=== PATIENT | male | born 1935 | race Caucasian/White ===

== ENCOUNTER 2018-08-22 21:38 | Emergency (ER) | payer MEDICARE ==
[~2018-08-22] VITALS: Ht 180.3 cm; Wt 78.0 kg
[~2018-08-22 21:38] MED LIST: DOCU-28 PO
[2018-08-22] MEDS ORDERED: ipratropium/albuterol 3ml nebule ONE (22:04)
[2018-08-22] MEDS ORDERED: ipratropium/albuterol 3ml nebule NEB ONE (22:05)
[2018-08-22] MEDS ORDERED: LORazepam 0.5 MG tablet PO ONE (22:05)
[2018-08-22] MEDS ORDERED: ondansetron 4mg rapidly disintigrating tab PO ONE (22:05)
[2018-08-22 22:20] LABS: BASOPHILS % (AUTO) 0.9 % (0-1); EOSINOPHILS # (AUTO) 0.1 X10'3 (0-0.9); EOSINOPHILS % (AUTO) 4.2 % (0-6); HEMATOCRIT 36.4 % (42.0-52.0); HEMOGLOBIN 12.3 g/dl (14.0-17.9); LYMPHOCYTES # (AUTO) 1.4 X10'3 (1.1-4.8); LYMPHOCYTES % (AUTO) 40.5 % (21-51); MEAN CORPUSCULAR HEMOGLOBIN 31.9 PG (27.0-31.0); MEAN CORPUSCULAR HGB CONC 33.9 % (33.0-36.5); MEAN CORPUSCULAR VOLUME 94.2 FL (78-98); MEAN PLATELET VOLUME 7.1 FL (7.4-10.4); MONOCYTES # (AUTO) 0.4 X10'3 (0-0.9); NEUTROPHILS # (AUTO) 1.5 X10'3 (1.8-7.7); NEUTROPHILS % (AUTO) 42.4 % (42-75); PLATELET COUNT 182 X10'3 (140-440); RED BLOOD COUNT 3.87 X10'6 (4.70-6.10); RED CELL DISTRIBUTION WIDTH 14.2 % (11.5-14.5); WHITE BLOOD COUNT 3.5 X10'3 (4.5-11.0)
[2018-08-22 22:44] LABS: D-DIMER 0.44 MG/L FEU (0-0.50); GLUCOSE 109 MG/DL (70-104); PARTIAL THROMBOPLASTIN TIME 28 SECONDS (22-32); SODIUM 137 MMOL/L (135-145)
[2018-08-22 22:45] LABS: ALANINE AMINOTRANSFERASE 24 U/L (12-78); ALBUMIN 3.7 G/DL (3.4-5.0); ALBUMIN/GLOBULIN RATIO 1.1 (1.1-1.5); ALKALINE PHOSPHATASE 105 IU/L (46-116); ANION GAP 13 (8-16); ASPARTATE AMINO TRANSFERASE 22 U/L (10-37); BILIRUBIN,TOTAL 0.3 MG/DL (0.1-1.0); BLOOD UREA NITROGEN 12 MG/DL (7-18); BUN/CREATININE RATIO 13.6 (5.4-32.0); CALCIUM 8.7 MG/DL (8.5-10.1); CHLORIDE 101 MMOL/L (99-107); CREATININE 0.88 MG/DL (0.60-1.10); POTASSIUM 3.7 MMOL/L (3.5-5.1); TOTAL CARBON DIOXIDE 22.9 MMOL/L (24-32); TOTAL PROTEIN 7.1 G/DL (6.4-8.2); eGFR 83 ML/MIN
[2018-08-22] MEDS ORDERED: oxymetazoline 15 ML nasal spray NS ONE (23:10)
[2018-08-22] MEDS ORDERED: AZIT-63 PO (23:31)
[2018-08-22] MEDS ORDERED: AFRIN NS (23:31)
[2018-08-23 00:03] VITALS: BP 143/87
== END 2018-08-23 00:06 | disposition home or self-care (01) ==
LOC: ER 21:39
DX: J06.9 Acute upper respiratory infection, unspecified (principal); Z79.2 Long term (current) use of antibiotics; Z79.899 Other long term (current) drug therapy; Z98.890 Other specified postprocedural states
CPT/HCPCS: 36415; 71045; 80053; 83605; 83880; 84484; 85025; 85379; 85610; 85730; 93005; 94640; 94760; 99284

== ENCOUNTER 2019-01-13 13:18 | Emergency (ER) | payer MEDICARE ==
[~2019-01-13] VITALS: Ht 180.3 cm; Wt 81.8 kg
[2019-01-13] MEDS ORDERED: acetaminophen 325mg tablet PO ONE (13:40)
[2019-01-13] MEDS ORDERED: ONDA4TAB6 PO (15:15)
[2019-01-13] MEDS ORDERED: TETanus/Pertussis (Acell)/Diphther VAC/PF (Tdap-Adult) 0.5ml syringe IM ONE (15:20)
[2019-01-13 15:44] VITALS: BP 148/96
== END 2019-01-13 15:45 | disposition home or self-care (01) ==
LOC: ER 13:18
DX: S06.0X0A Concussion without loss of consciousness, initial encounter (principal); S00.03XA Contusion of scalp, initial encounter; G89.29 Other chronic pain; Z79.899 Other long term (current) drug therapy; W18.39XA Other fall on same level, initial encounter; Y93.89 Activity, other specified; Y92.89 Other specified places as the place of occurrence of the external cause; Y99.8 Other external cause status
CPT/HCPCS: 70450; 72125; 90471; 90715; 99284

== ENCOUNTER 2019-08-31 16:06 | Emergency (ER) | payer MEDICARE ==
[~2019-08-31] VITALS: Ht 180.3 cm; Wt 81.0 kg
[~2019-08-31 16:06] MED LIST changes: +ONDA4TAB6 PO
[2019-08-31 17:14] LABS: CLARITY,URINE CLOUDY (Clear); COLOR,URINE STRAW (Yellow); GLUCOSE, URINE NEGATIVE (Neg); KETONES,URINE NEGATIVE (Neg); LEUKOCYTE ESTERASE ,URINE NEGATIVE (Neg); NITRITES, URINE NEGATIVE (Neg); OCCULT BLOOD,URINE LARGE (Neg); PROTEIN,URINE NEGATIVE (Neg); UA COLLECTION TYPE FOLEY CATH; UROBILINOGEN,URINE 0.2 E.U/dL (0.2-1.0)
[2019-08-31 17:20] LABS: BACTERIA,URINE NONE SEEN /HPF (Neg); MUCUS STRANDS NONE SEEN /LPF (Neg); RBC,URINE TNTC /HPF (0-2); SQUAMOUS EPITHELIAL CELL,UR NONE SEEN /LPF (FEW); WBC,URINE 0-4 /HPF (0-4)
[2019-08-31 19:02] LABS: ALBUMIN 3.7 G/DL (3.4-5.0); ANION GAP 5 (8-16); BLOOD UREA NITROGEN 15 MG/DL (7-18); BUN/CREATININE RATIO 16.1 (5.4-32.0); CALCIUM 8.4 MG/DL (8.5-10.1); CHLORIDE 105 MMOL/L (99-107); CREATININE 0.93 MG/DL (0.60-1.10); GLUCOSE 106 MG/DL (70-104); POTASSIUM 3.7 MMOL/L (3.5-5.1); SODIUM 140 MMOL/L (135-145); TOTAL CARBON DIOXIDE 30.1 MMOL/L (24-32); eGFR 77 ML/MIN
[2019-08-31 19:28] VITALS: BP 134/80
== END 2019-08-31 19:30 | disposition home or self-care (01) ==
LOC: ER 16:06
DX: R33.9 Retention of urine, unspecified (principal); G89.29 Other chronic pain; Z98.890 Other specified postprocedural states; Z79.899 Other long term (current) drug therapy
CPT/HCPCS: 36415; 51702; 80048; 81001; 99284

== ENCOUNTER 2020-05-20 16:26 | Emergency (ER) | payer MEDICARE ==
[~2020-05-20] VITALS: Ht 180.3 cm; Wt 81.8 kg
[2020-05-20] MEDS ORDERED: oxyCODONE/APAP 10/325mg tablet PO ONE (17:30)
[2020-05-20] MEDS ORDERED: morphine 5 MG/ML injection IV ONE (17:30)
[2020-05-20] MEDS ORDERED: OXYC-150 PO (17:31)
[2020-05-20] MEDS ORDERED: morphine 10mg/ml inj. IV ONE (17:45)
[2020-05-20 18:09] VITALS: BP 115/70
== END 2020-05-20 18:10 | disposition home or self-care (01) ==
LOC: ER 16:26
DX: S42.202A Unspecified fracture of upper end of left humerus, initial encounter for closed fracture (principal); G89.29 Other chronic pain; Z85.9 Personal history of malignant neoplasm, unspecified; Z98.890 Other specified postprocedural states; Z79.899 Other long term (current) drug therapy; W01.0XXA Fall on same level from slipping, tripping and stumbling without subsequent striking against object, initial encounter; Y93.89 Activity, other specified; Y92.89 Other specified places as the place of occurrence of the external cause; Y99.8 Other external cause status
CPT/HCPCS: 29105; 73030; 96374; 99284; J2270; 29505

== ENCOUNTER 2020-05-22 18:37 | Emergency (ER) | payer MEDICARE ==
[~2020-05-22] VITALS: Ht 180.3 cm; Wt 81.8 kg
[~2020-05-22 18:37] MED LIST changes: +OXYC-150 PO
[2020-05-22 18:45] VITALS: BP 148/84
[2020-05-22] MEDS ORDERED: morphine 4 MG/ML inj SYRINge IM ONE (19:35)
[2020-05-22] MEDS ORDERED: ibuprofen tablet 400 MG TABLET PO ONE (20:25)
== END 2020-05-22 21:06 | disposition home or self-care (01) ==
LOC: ER 18:37
DX: S42.202D Unspecified fracture of upper end of left humerus, subsequent encounter for fracture with routine healing (principal); G89.29 Other chronic pain; Z98.890 Other specified postprocedural states; Z79.899 Other long term (current) drug therapy; W01.0XXD Fall on same level from slipping, tripping and stumbling without subsequent striking against object, subsequent encounter
CPT/HCPCS: 96372; 99283; J2270

== ENCOUNTER 2020-09-27 08:02 | Day surgery (SDC) | payer MEDICARE ==
[2020-09-27] VITALS (16 sets, daily range): BP systolic 138–167; BP diastolic 59–97
[~2020-09-27] VITALS: Ht 180.3 cm; Wt 85.1 kg
[2020-09-27] MEDS ORDERED: TRIA1CAP6 PO (08:33)
[2020-09-27] MEDS ORDERED: MIRA50TA PO (08:33)
[2020-09-27] MEDS ORDERED: MELO-100 PO (08:33)
[2020-09-27] MEDS ORDERED: RIVA20TA PO (08:33)
[2020-09-27] MEDS ORDERED: FLO0.4C PO (08:33)
[2020-09-27] MEDS ORDERED: AMIT-189 PO (08:33)
[2020-09-27] MEDS ORDERED: AMLO2.5T2 PO (08:33)
[2020-09-27] MEDS ORDERED: TROS20TA4 PO (08:33)
[2020-09-27] MEDS ORDERED: LOVA20TA2 PO (08:33)
[2020-09-27] MEDS ORDERED: normal saline 1000ml 1,000 ML IV SCH (08:35)
[2020-09-27] MEDS ORDERED: fentaNYL/PF 50MCG/1 ML 2ML syringe IV ONE (08:35)
[2020-09-27] MEDS ORDERED: MIDAZolam 1mg/ml 10ml vial IV ONE (08:35)
[2020-09-27 08:45] LABS: BASOPHILS % (AUTO) 0.9 % (0-1); EOSINOPHILS # (AUTO) 0.2 X10'3 (0-0.9); EOSINOPHILS % (AUTO) 5.3 % (0-6); HEMATOCRIT 35.9 % (42.0-52.0); LYMPHOCYTES # (AUTO) 1.5 X10'3 (1.1-4.8); LYMPHOCYTES % (AUTO) 34.5 % (21-51); MEAN CORPUSCULAR HEMOGLOBIN 31.7 PG (27.0-31.0); MEAN CORPUSCULAR HGB CONC 33.4 g/dL (33.0-36.5); MEAN CORPUSCULAR VOLUME 94.9 FL (78-98); MEAN PLATELET VOLUME 7.2 FL (7.4-10.4); MONOCYTES # (AUTO) 0.5 X10'3 (0-0.9); MONOCYTES % (AUTO) 10.1 % (2-12); NEUTROPHILS # (AUTO) 2.2 X10'3 (1.8-7.7); NEUTROPHILS % (AUTO) 49.2 % (42-75); PLATELET COUNT 176 X10'3 (140-440); RED BLOOD COUNT 3.78 X10'6 (4.70-6.10); RED CELL DISTRIBUTION WIDTH 15.2 % (11.5-14.5); WHITE BLOOD COUNT 4.5 X10'3 (4.5-11.0)
[2020-09-27 08:59] LABS: ALBUMIN 3.8 G/DL (3.4-5.0); BLOOD UREA NITROGEN 16 MG/DL (7-18); BUN/CREATININE RATIO 15.5 (5.4-32.0); CALCIUM 8.6 MG/DL (8.5-10.1); CHLORIDE 105 MMOL/L (99-107); CREATININE 1.03 MG/DL (0.60-1.10); GLUCOSE 117 MG/DL (70-104); MAGNESIUM 2.1 MG/DL (1.5-2.4); POTASSIUM 3.9 MMOL/L (3.5-5.1); TOTAL CARBON DIOXIDE 27.8 MMOL/L (24-32); eGFR 69 ML/MIN
[2020-09-27 09:03] LABS: ANION GAP 8 (8-16); SODIUM 141 MMOL/L (135-145)
[2020-09-27] MEDS ORDERED: atropine 0.1mg/ml 10ml syringe IV ONE (09:45)
--- NOTE | 2020-09-27 10:22 | NUR ---
Called pt per pt request to reassure her of discharge information and timing of procedure. She answered and verbalized understanding.
== END 2020-09-27 14:05 | disposition home or self-care (01) ==
LOC: SSTAY O 08:02
PROVIDERS: ATTEND Internal Medicine Cardiovascular Disease
DX: I48.19 Other persistent atrial fibrillation (principal); I10 Essential (primary) hypertension; E78.5 Hyperlipidemia, unspecified; Z79.01 Long term (current) use of anticoagulants; Z79.899 Other long term (current) drug therapy; Z86.73 Personal history of transient ischemic attack (TIA), and cerebral infarction without residual deficits; Z85.46 Personal history of malignant neoplasm of prostate; Z98.890 Other specified postprocedural states; Z98.49 Cataract extraction status, unspecified eye; Z87.891 Personal history of nicotine dependence; Z72.89 Other problems related to lifestyle; Z82.49 Family history of ischemic heart disease and other diseases of the circulatory system
CPT/HCPCS: 36415; 80048; 83735; 85025; 85610; 92960; 93005; 94799; J2250; J3010; J7030

== ENCOUNTER 2020-12-02 12:41 | Outpatient (CLI) | payer MEDICARE ==
[~2020-12-02 12:41] MED LIST changes: +AMIT-189 PO; +AMLO2.5T2 PO; +FLO0.4C PO; +LOVA20TA2 PO; +MELO-100 PO; +MIRA50TA PO; -ONDA4TAB6 PO; -OXYC-150 PO; +RIVA20TA PO; +TRIA1CAP6 PO; +TROS20TA4 PO
== END 2020-12-02 23:59 | disposition home or self-care (01) ==
LOC: VAS 12:41
PROVIDERS: ATTEND Specialist
DX: S80.11XA Contusion of right lower leg, initial encounter (principal); M79.604 Pain in right leg; X58.XXXA Exposure to other specified factors, initial encounter; Y93.89 Activity, other specified; Y92.89 Other specified places as the place of occurrence of the external cause; Y99.8 Other external cause status
CPT/HCPCS: 93971